=== PATIENT | male | born 1955 | race Caucasian/White ===

== ENCOUNTER 2021-08-13 17:56 | Emergency (ER) | payer MEDICAID ==
[~2021-08-13] VITALS: Ht 175.3 cm; Wt 82.0 kg
[2021-08-13] MEDS ORDERED: HYDROCODONE/ACETAMINOPHEN 5/325MG TABLET PO ONE (23:45)
[2021-08-14] MEDS ORDERED: HYDROCODONE/ACETAMINOPHEN 5/325MG TABLET PO SCH (08:15)
[2021-08-14 08:44] VITALS: BP 152/74
== END 2021-08-14 08:46 | disposition home or self-care (01) ==
LOC: ER 17:56
DX: F11.10 Opioid abuse, uncomplicated (principal); G89.29 Other chronic pain; M79.605 Pain in left leg
CPT/HCPCS: 93970; 99284; Z7610